=== PATIENT | female | born 1985 | race Caucasian/White ===

== ENCOUNTER → 2019-08-09 | Outpatient (CLI) | payer OTHER ==
--- NOTE | 2019-08-09 10:55 | KCIC ---
MR of the right hand HISTORY: Right thumb pain after injury. Pain at the anterior thumb. Injury in May. TECHNIQUE: Routine multiplanar sequences are obtained through the hand. FINDINGS: No evidence of acute fracture or acute bone marrow edema. No aggressive bone destruction. No significant joint effusion. Visualized tendons are intact. No significant tendon sheath fluid. The radial and ulnar collateral ligaments at the first carpometacarpal joint and first interphalangeal joints appear intact. No abnormal soft tissue edema or fluid collection. Tiny 4 mm cyst or ganglion identified at the margin of the exam just anterior to the radioscaphoid joint. IMPRESSION: No acute abnormality at the thumb. Electronically signed by: Elpidio Guy MD (08/09/2019 10:53 AM) [facility]
== END | disposition home or self-care (01) ==
LOC: KCIC MRI 09:07
PROVIDERS: ATTEND Family Medicine
DX: S69.91XA Unspecified injury of right wrist, hand and finger(s), initial encounter (principal); X58.XXXA Exposure to other specified factors, initial encounter; Y93.89 Activity, other specified; Y92.89 Other specified places as the place of occurrence of the external cause; Y99.8 Other external cause status
CPT/HCPCS: 73221

== ENCOUNTER → 2021-03-19 | Outpatient (CLI) | payer OTHER ==
--- NOTE | 2021-03-19 14:13 | KCIC ---
Examination: MRI of the left ankle without contrast HISTORY: History of medial ankle pain COMPARISON: None TECHNIQUE: Multiplanar, multisequence MR imaging of the left ankle performed without contrast. FINDINGS: The attachment of the Achilles tendon to the calcaneus and the attachment of the plantar fascia to th e inferior aspect of the calcaneus grossly appears intact. Minimal increased T2 signal identified in the medial aspect of the plantar fascia at its attachment the calcaneus. Anterior extensor compartmen t tendons, flexor tendons, peroneal tendons grossly appears intact. The alignment of the tarsal bones , tarsometatarsal joints grossly appears unremarkable. Fat is present within the sinus tarsi. Mild in creased T2 signal identified in the Kager's fat anterior to the Achilles tendon. The deltoid ligament appears intact. The anterior and posterior tibiofibular, talofibular ligament appears intact. IMPRESSION: 1. Minimal increased T2 signal identified in the medial aspect of the plantar fascia at its attachme nt to the calcaneus likely mild plantar fasciitis. 2. Mild increased T2 signal identified in the Kager's fat anterior to the Achilles tendon, nonspecif ic. Electronically signed by: Rui Pratt MD (03/19/2021 2:11 PM) [id number]
--- NOTE | 2021-03-19 15:14 | KCIC ---
Exam: MRI of the right ankle without contrast HISTORY: History right ankle pain COMPARISON: None available TECHNIQUE: Multiplanar, multisequence MR imaging of the right ankle without contrast FINDINGS: The attachment of the Achilles tendon to the calcaneus grossly appears intact.The attachment of the p lantar fascia to the inferior calcaneus grossly appears intact. There is minimal amount of T2 signal identified in the Kager's fat anterior to the Achilles tendon. The alignment of the tarsal bones jay sly appears intact. The flexor tendons, peroneal tendons, anterior extensor compartment tendons gross ly appears intact. The attachment of the anterior tibiofibular, talofibular ligament appear intact. T he deltoid ligament appears intact. Mild edema identified in the soft tissue about the ankle joint. Fat is present within the sinus tarsi. IMPRESSION: 1.Minimal amount of T2 signal identified in the Kager's fat anterior to the Achilles tendon, nonspeci fic. 2. Mild edema identified in the soft tissue about the ankle joint. Electronically signed by: Rui Pratt MD (03/19/2021 3:11 PM) [id number]
== END ==
LOC: KCIC MRI 13:06
PROVIDERS: ATTEND Family Medicine
DX: M76.62 Achilles tendinitis, left leg (principal); M76.61 Achilles tendinitis, right leg; M79.89 Other specified soft tissue disorders
CPT/HCPCS: 73721